=== PATIENT | male | born 1965 | race Caucasian/White ===

== ENCOUNTER 2018-05-24 07:25 | Day surgery (SDC) | payer OTHER ==
[~2018-05-24 07:25] MED LIST: ADULT ASPIRIN81 MG PO; LIPITOR20 MG PO; LOSARTAN POTASS50 MG PO; SYNTHROID88 MCG PO
== END 2018-05-24 12:10 | disposition home or self-care (01) ==
LOC: AMB-ENDOS 07:25
DX: K64.0 First degree hemorrhoids (principal); K92.1 Melena